=== PATIENT | male | born 1960 | race African-American/Black ===

== ENCOUNTER 2018-02-08 17:50 | Inpatient (IN) | payer MEDICARE, OTHER ==
[~2018-02-08] VITALS: Ht 167.6 cm; Wt 86.6 kg
[~2018-02-08 17:50] MED LIST: METO25TA4 PO; PRED20TA PO; TACR1CAP4 PO; VERA240C2 PO
[2018-02-08] MEDS ORDERED: IV NORMAL SALINE 1000ML BAG 1,000 ML IV SCH (19:06)
[2018-02-08] MEDS ORDERED: METO-247 PO (19:11)
[2018-02-08] MEDS ORDERED: OMEP20CA9 PO (19:11)
[2018-02-08] MEDS ORDERED: CYAN50TA PO (19:11)
[2018-02-08] MEDS ORDERED: MYCO360T PO (19:11)
[2018-02-08] MEDS ORDERED: VERA120C2 PO (19:11)
[2018-02-08] MEDS ORDERED: PRED5TAB PO (19:11)
--- NOTE | 2018-02-08 19:12 | PHYS DOC ---
Past Medical History Past Medical History: A-Fib, Hypertension, Renal Failure, Other Additional Past Medical Histor: lupus; renal transplant Past Surgical History: Other Additional Past Surgical Histo: R renal transplant Smoking: Cigarettes (The patient is a nonsmoker.) Alcohol Use: None Drug Use: None Adult General Chief Complaint Chief Complaint: DIZZY/LIGHT HEADED HPI HPI Patient is a 57-year-old -[place]ian male, with a past history of hypertension, lupus, renal failure, status post remote renal transplant, who presents to the emergency department for evaluation. He states at work today, he began getting lightheaded at times, and was very short of breath with exertion. He states he would have occasional palpitations. He states he has had episodes of palpitation in the past, but they never lasted as long as it did today. He denies any pain, including any chest pain, or pleuritic pain. He has not had any nausea, or vomiting. He called his doctor's office, and was sent to urgent care, where an EKG was performed and he was found to be in atrial fibrillation, which is new for him, and he was thus sent to the emergency department. He still feels short of breath with exertion. There are no alleviating, or exacerbating factors to his symptoms, except exertion worsening his symptoms, as noted above. Review of Systems Review of Systems Constitutional: Denies fever or chills [] Eyes: Denies change in visual acuity, redness, or eye pain [] HENT: Denies nasal congestion or sore throat [] Respiratory: Denies cough or pleuritic chest pain[] Cardiovascular: No additional information not addressed in HPI [] GI: Denies abdominal pain, nausea, vomiting, bloody stools or diarrhea [] : Denies dysuria or hematuria [] Musculoskeletal: Denies back pain or joint pain [] Integument: Denies rash or skin lesions [] Neurologic: Denies headache, focal weakness or sensory changes [] Endocrine: Denies polyuria or polydipsia [] All other systems were reviewed and found to be within normal limits, except as documented in this note. Current Medications Current Medications Current Medications Medications (Trade) Dose Ordered Sig/Jorge L Start Time Stop Time Status Last Admin Dose Admin Apixaban (Eliquis) 5 mg 1X ONCE 02/08/18 20:00 02/08/18 20:01 02/08/18 19:34 5 MG Sodium Chloride 1,000 ml @ 100 mls/hr Q10H 02/08/18 19:06 02/09/18 05:05 02/08/18 19:13 100 MLS/HR Allergies Allergies Allergies Coded Allergies Type Severity Reaction Last Updated Verified Sulfa (Sulfonamide Antibiotics) Allergy Unknown 03/28/14 No Tetracycline Allergy Unknown 03/28/14 No Physical Exam Physical Exam PHYSICAL EXAM: CONSTITUTIONAL: Well developed, well nourished HEAD: normocephalic, atraumatic EENT: PERRL, EOMI. Conjunctivae normal color, sclerae non-icteric; moist mucous membranes. NECK: Supple, non-tender; no meningismus. LUNGS: Lungs CTA, breathing even and unlabored. Normal air movement. HEART: Irregularly irregular rhythm, no murmur CHEST: No deformity; non-tender ABDOMEN: The abdomen is soft, and non-tender, no masses or bruits. EXTREM: Normal ROM; no deformity, no calf tenderness. Normal pulses palpable in all extremities. There is no pedal edema. SKIN: No rash; no diaphoresis NEURO: Alert; normal speech and cognition; CN's grossly intact; strength grossly intact without focal deficit. BACK: No CVA TTP. Current Patient Data Vital Signs Vital Signs Date Time Temp Pulse Resp B/P (MAP) Pulse Ox O2 Delivery O2 Flow Rate FiO2 02/08/18 18:45 99.0 75 16 120/85 (97) Room Air 99.0 Lab Values Laboratory Tests Test 02/08/18 19:00 White Blood Count 9.3 x10^3/uL (4.0-11.0) Red Blood Count 4.48 x10^6/uL (4.30-5.70) Hemoglobin 13.5 g/dL (13.0-17.5) Hematocrit 42.1 % (39.0-53.0) Mean Corpuscular Volume 94 fL (79-100) Mean Corpuscular Hemoglobin 30 pg (25-35) Mean Corpuscular Hemoglobin Concent 32 g/dL (31-37) Red Cell Distribution Width 14.3 % (11.5-14.5) Platelet Count 276 x10^3/uL (140-400) Neutrophils (%) (Auto) 68 % (31-73) Lymphocytes (%) (Auto) 23 % (24-48) L Monocytes (%) (Auto) 9 % (0-9) Eosinophils (%) (Auto) 1 % (0-3) Basophils (%) (Auto) 0 % (0-3) Neutrophils # (Auto) 6.3 x10^3uL (1.8-7.7) Lymphocytes # (Auto) 2.1 x10^3/uL (1.0-4.8) Monocytes # (Auto) 0.8 x10^3/uL (0.0-1.1) Eosinophils # (Auto) 0.1 x10^3/uL (0.0-0.7) Basophils # (Auto) 0.0 x10^3/uL (0.0-0.2) Prothrombin Time 12.6 SEC (11.7-14.0) Prothrombin Time INR 1.0 (0.8-1.1) D-Dimer (Natalie) 1.99 ug/mlFEU (0.00-0.50) H Sodium Level 139 mmol/L (136-145) Potassium Level 3.5 mmol/L (3.5-5.1) Chloride Level 105 mmol/L (98-107) Carbon Dioxide Level 28 mmol/L (21-32) Anion Gap 6 (6-14) Blood Urea Nitrogen 16 mg/dL (8-26) Creatinine 1.8 mg/dL (0.7-1.3) H Estimated GFR (Cockcroft-Gault) 47.5 BUN/Creatinine Ratio 9 (6-20) Glucose Level 107 mg/dL (70-99) H Calcium Level 8.8 mg/dL (8.5-10.1) Magnesium Level 1.6 mg/dL (1.8-2.4) L Total Bilirubin 0.5 mg/dL (0.2-1.0) Aspartate Amino Transferase (AST) 18 U/L (15-37) Alanine Aminotransferase (ALT) 21 U/L (16-63) Alkaline Phosphatase 85 U/L (46-116) Creatine Kinase 108 U/L (39-308) Creatine Kinase MB (Mass) 0.8 ng/mL (0.0-3.6) Creatine Kinase MB Relative Index 0.7 % (0-4) Troponin I Quantitative 0.027 ng/mL (0.000-0.055) AX-Bng-U-Type Natriuretic Peptide 1255 pg/mL (0-124) H Total Protein 8.1 g/dL (6.4-8.2) Albumin 3.6 g/dL (3.4-5.0) Albumin/Globulin Ratio 0.8 (1.0-1.7) L Thyroid Stimulating Hormone (TSH) 1.548 uIU/mL (0.358-3.74) Free Thyroxine 0.88 ng/dL (0.76-1.46) Laboratory Tests 02/08/18 19:00 Laboratory Tests 02/08/18 19:00 EKG EKG [Atrial fibrillation at a rate of 78 beats for minute, left axis deviation, normal intervals. There are no acute ischemic ST/T changes.] Radiology/Procedures Radiology/Procedures [ER physician preliminary chest x-ray interpretation: No acute disease.] Course & Med Decision Making Course & Med Decision Making Pertinent Labs and Imaging studies reviewed. (See chart for details) [7:55 PM:The patient's condition remains stable. I spoke with the hospitalist , who accepted the patient to the hospital for further evaluation and treatment. ] VQ scan will be ordered, and will be followed up by the hospitalist. Dragon Disclaimer Dragon Disclaimer This electronic medical record was generated, in whole or in part, using a voice recognition dictation system. Departure Departure Impression: Primary Impression: Dyspnea on exertion Additional Impression: New onset atrial fibrillation Disposition: ADMITTED INPATIENT Admitting Physician: Michael Lambert Condition: STABLE Referrals: JENNIFER KATZ Jr, MD (PCP) Problem Qualifiers DIETER JOHANSEN MD Feb 08, 2018 19:12
[2018-02-08 19:17] LABS: BASO % 0 % (0-3); EOS # 0.1 x10^3/uL (0.0-0.7); EOS % 1 % (0-3); HEMATOCRIT 42.1 % (39.0-53.0); HEMOGLOBIN 13.5 g/dL (13.0-17.5); LYMPH # 2.1 x10^3/uL (1.0-4.8); LYMPH % 23 % (24-48); MEAN CORPUSCULAR HEMOGLOBIN 30 pg (25-35); MEAN CORPUSCULAR HGB CONC 32 g/dL (31-37); MEAN CORPUSCULAR VOLUME 94 fL (79-100); MONO # 0.8 x10^3/uL (0.0-1.1); MONO % 9 % (0-9); NEUT # 6.3 x10^3uL (1.8-7.7); NEUT % 68 % (31-73); PLATELET COUNT 276 x10^3/uL (140-400); RED BLOOD COUNT 4.48 x10^6/uL (4.30-5.70); RED CELL DISTRIBUTION WIDTH 14.3 % (11.5-14.5); WHITE BLOOD COUNT 9.3 x10^3/uL (4.0-11.0)
[2018-02-08 19:24] LABS: PROTHROMBIN TIME PATIENT 12.6 SEC (11.7-14.0)
[2018-02-08 19:28] LABS: D-DIMER 1.99 ug/mlFEU (0.00-0.50)
[2018-02-08 19:29] LABS: CALCIUM 8.8 mg/dL (8.5-10.1); CREATININE 1.8 mg/dL (0.7-1.3); GFR 47.5; POTASSIUM 3.5 mmol/L (3.5-5.1)
[2018-02-08 19:34] LABS: ALBUMIN 3.6 g/dL (3.4-5.0); ALBUMIN/GLOBULIN RATIO 0.8 (1.0-1.7); MAGNESIUM 1.6 mg/dL (1.8-2.4); TOTAL BILIRUBIN 0.5 mg/dL (0.2-1.0); TOTAL PROTEIN 8.1 g/dL (6.4-8.2)
[2018-02-08 19:41] LABS: FREE T4 0.88 ng/dL (0.76-1.46); THYROID STIM HORMONE (TSH) 1.548 uIU/mL (0.358-3.74)
[2018-02-08] MEDS ORDERED: APIXABAN 5 MG TABLET. PO ONE (20:00)
[2018-02-08 21:15] VITALS: BP 136/94
[2018-02-08] MEDS ORDERED: TACR1CAP4 PO (21:45)
[2018-02-08] MEDS ORDERED: VERAPAMIL SR 120 MG TABLET.ER. PO SCH (22:00)
[2018-02-08] MEDS: MYCOPHENOLATE ACID 180 MG TABLET.DR. PO SCH (22:14)
[2018-02-08] MEDS ORDERED: TACROLIMUS 0.5 MG CAPSULE PO SCH (22:30)
[2018-02-08 22:35] VITALS: BP 136/94
[2018-02-09 03:00] VITALS: BP 117/73
--- NOTE | 2018-02-09 05:24 | EKG ---
[facility] [address] [place] [address] Test Date: 2018-02-08 Test Time: 18:48:29 Pat Name: BARBARA DAS Department: Room: 252 1 Gender: M Siphoner: MAR : 1960 Requested By: DIETER JOHANSEN Order Number: [id number] Reading MD: Chilo Nunn MD Measurements Intervals [place] Rate: 77 P: RI: QRS: -25 QRSD: 76 T: 24 QT: 370 QTc: 425 Interpretive Statements ATRIAL FIBRILLATION NON-SPECIFIC ST/T CHANGES Electronically Signed On 02-10-2018 8:45:28 CDT by Chilo Nunn MD
[2018-02-09] MEDS ORDERED: HEPARIN PF for SUB-Q USE 5,000 UNIT/0.5 ML VIAL. SQ SCH (06:00)
[2018-02-09 07:00] VITALS: BP 123/76
[2018-02-09] MEDS ORDERED: POTASSIUM CHLORIDE 20 MEQ TABLET.ER. PO ONE (07:15)
--- NOTE | 2018-02-09 07:20 | PDOC1 ---
History and Physical Date of Admission Date of Admission DATE: 02/09/18 TIME: 07:17 Identification/Chief Complaint Chief Complaint dizzy, dyspnea Source Source: Chart review, Patient History of Present Illness History of Present Illness Mr. Kulkarni is a 57-year-old -[place] male, admit with dyspnea, tachycardia, dizzy and lightheaded. sent to the ER by urgent care, EKG there showed irregularity, afib, RVR. new onset, he had been out of his Toprol XL for 5 days, had been compliant with he prograf , new dyspnea and weakness yesterday, feels better this AM, now rate controlled. with a past history of hypertension, lupus, renal failure, status post remote renal transplant, he drives a concrete truck for [employer] Past Medical History Cardiovascular: HTN Pulmonary: No pertinent hx GI: No pertinent hx Heme/Onc: No pertinent hx Hepatobiliary: No pertinent hx Psych: No pertinent hx Renal/: Chronic renal insuff, Other Endocrine: No pertinent hx Family History Family History: No Significant Social History Smoke: Quit ALCOHOL: none Drugs: None Current Problem List Problem List Problems Medical Problems: (1) Dyspnea on exertion Status: Acute (2) New onset atrial fibrillation Status: Acute Current Medications Current Medications Current Medications Sodium Chloride 1,000 ml @ 100 mls/hr Q10H IV Last administered on 02/08/18at 19 :13; Start 02/08/18 at 19:06; Stop 02/09/18 at 05:05; Status DC Apixaban (Eliquis) 5 mg 1X ONCE PO Last administered on 02/08/18at 19:34; Start 02/08/18 at 20:00; Stop 02/08/18 at 20:01; Status DC Mycophenolate Sodium (Myfortic) 360 mg BID PO ; Start 02/09/18 at 09:00; Stop 02/09/18 at 09:00; Status DC Pantoprazole Sodium (Protonix) 40 mg DAILYAC PO ; Start 02/09/18 at 07:30 Tacrolimus (Prograf) 2 mg DAILY PO ; Start 02/09/18 at 09:00; Stop 02/09/18 at 09: 00; Status DC Tacrolimus (Prograf) 3 mg QHS PO ; Start 02/09/18 at 21:00; Stop 02/09/18 at 21:00 ; Status DC Verapamil HCl (Calan Sr) 120 mg QHS PO Last administered on 02/08/18at 22:15; Start 02/08/18 at 22:00 Mycophenolate Sodium (Myfortic) 360 mg BID PO Last administered on 02/08/18at 22: 14; Start 02/08/18 at 22:00 Tacrolimus (Prograf) 2 mg DAILY PO ; Start 02/09/18 at 09:00 Tacrolimus (Prograf) 3 mg QHS PO Last administered on 02/08/18at 22:15; Start 02/08/18 at 22:30 Heparin Sodium (Porcine) (Heparin Sq) 5,000 unit Q8HRS SQ Last administered on 02/09/18at 06:19; Start 02/09/18 at 06:00; Stop 02/09/18 at 07:09; Status DC Potassium Chloride (Klor-Con) 40 meq 1X ONCE PO ; Start 02/09/18 at 07:15; Stop 02/09/18 at 07:16; Status DC Apixaban (Eliquis) 5 mg BID PO ; Start 02/09/18 at 09:00 Metoprolol Succinate (Toprol Xl) 100 mg DAILY PO ; Start 02/09/18 at 09:00 Prednisone (Prednisone) 5 mg DAILY PO ; Start 02/09/18 at 09:00 Active Scripts Active Reported Prograf (Tacrolimus) 1 Mg Capsule 3 Cap PO HS Vitamin B-12 (Cyanocobalamin (Vitamin B-12)) 50 Mcg Tablet 50 Mcg PO Omeprazole 20 Mg Capsule.dr 20 Mg PO DAILY Prednisone 5 Mg Tablet 5 Mg PO DAILY Metoprolol Succinate ( Xl ) (Metoprolol Succinate) 100 Mg Tab.er.24h 100 Mg PO DAILY Verapamil Er (Verapamil Hcl) 120 Mg Cap24h.pel 120 Mg PO HS Myfortic (Mycophenolate Sodium) 360 Mg Tablet.dr 360 Mg PO BID Prograf (Tacrolimus) 1 Mg Capsule 2 Cap PO DAILY Allergies Allergies: Coded Allergies: Sulfa (Sulfonamide Antibiotics) (Unverified Allergy, Intermediate, 02/08/18) tetracycline (Unverified Allergy, Intermediate, 02/08/18) ROS General: YES: Chills, Fatigue, Malaise; No: Night Sweats, Appetite, Other PSYCHOLOGICAL ROS: No: Anxiety, Behavioral Disorder, Concentration difficultie , Decreased libido, Depression, Disorientation, Hallucinations, Hostility, Irritablity, Memory difficulties, Mood Swings, Obsessive thoughts, Physical abuse, Sexual abuse, Sleep disturbances, Suicidal ideation, Other HEENT: No: Heacaches, Visual Changes, Hearing change, Nasal congestion, Nasal discharge, Oral lesions, Sinus pain, Sore Throat, Epistaxis, Sneezing, Snoring, Tinnitus, Vertigo, Vocal changes, Other Respiratory: No: Cough, Hemoptysis, Orthopnea, Pleuritic Pain, Shortness of breath, SOB with excertion, Sputum Changes, Stridor, Tachypnea, Wheezing, Other Cardiovascular: No Chest Pain, No Palpitations, No Orthopnea, No Paroxysmal Noc. Dyspnea, No Edema, No Lt Headedness, No Other Gastrointestinal: No Nausea, No Vomiting, No Abdominal Pain, No Diarrhea, No Constipation, No Melena, No Hematochezia, No Other Genitourinary: No Dysuria, No Frequency, No Incontinence, No Hematuria, No Retention, No Discharge, No Urgency, No Pain, No Flank Pain, No Other, No , No , No , No , No , No , No Musculoskeletal: Yes Joint Stiffness; No Gait Disturbance, No Joint Pain, No Joint Swelling, No Muscle Pain, No Muscular Weakness, No Pain In:, No Swelling In:, No Other Neurological: No Behavorial Changes, No Bowel/Bladder ControlChng, No Confusion , No Dizziness, No Gait Disturbance, No Headaches, No Impaired Coord/balance, No Memory Loss, No Numbness/Tingling, No Seizures, No Speech Problems, No Tremors, No Visual Changes, No Weakness, No Other Skin: No Dry Skin, No Eczema, No Hair Changes, No Lumps, No Mole Changes, No Mottling, No Nail Changes, No Pruritus, No Rash, No Skin Lesion Changes, No Other, No Acne Physical Exam General: Alert, Cooperative, No acute distress HEENT: Atraumatic, PERRLA, EOMI, Mucous membr. moist/pink Lungs: Normal air movement, Other (wheeze, right, end exp) Heart: S1S2, no gallops, no murmurs Abdomen: Normal bowel sounds, Soft Extremities: No cyanosis, Normal pulses Skin: No rashes, No significant lesion Neuro: Normal speech, Normal tone, Sensation intact Psych/Mental Status: Mental status NL, Mood NL Vitals Vitals Vital Signs Date Time Temp Pulse Resp B/P (MAP) Pulse Ox O2 Delivery O2 Flow Rate FiO2 02/09/18 03:00 98.8 69 16 117/73 (88) 99 Room Air 98.8 Labs Labs Laboratory Tests Test 02/08/18 19:00 02/09/18 01:25 White Blood Count 9.3 x10^3/uL (4.0-11.0) Red Blood Count 4.48 x10^6/uL (4.30-5.70) Hemoglobin 13.5 g/dL (13.0-17.5) Hematocrit 42.1 % (39.0-53.0) Mean Corpuscular Volume 94 fL (79-100) Mean Corpuscular Hemoglobin 30 pg (25-35) Mean Corpuscular Hemoglobin Concent 32 g/dL (31-37) Red Cell Distribution Width 14.3 % (11.5-14.5) Platelet Count 276 x10^3/uL (140-400) Neutrophils (%) (Auto) 68 % (31-73) Lymphocytes (%) (Auto) 23 % (24-48) Monocytes (%) (Auto) 9 % (0-9) Eosinophils (%) (Auto) 1 % (0-3) Basophils (%) (Auto) 0 % (0-3) Neutrophils # (Auto) 6.3 x10^3uL (1.8-7.7) Lymphocytes # (Auto) 2.1 x10^3/uL (1.0-4.8) Monocytes # (Auto) 0.8 x10^3/uL (0.0-1.1) Eosinophils # (Auto) 0.1 x10^3/uL (0.0-0.7) Basophils # (Auto) 0.0 x10^3/uL (0.0-0.2) Prothrombin Time 12.6 SEC (11.7-14.0) Prothromb Time International Ratio 1.0 (0.8-1.1) D-Dimer (Natalie) 1.99 ug/mlFEU (0.00-0.50) Sodium Level 139 mmol/L (136-145) Potassium Level 3.5 mmol/L (3.5-5.1) Chloride Level 105 mmol/L (98-107) Carbon Dioxide Level 28 mmol/L (21-32) Anion Gap 6 (6-14) Blood Urea Nitrogen 16 mg/dL (8-26) Creatinine 1.8 mg/dL (0.7-1.3) Estimated GFR (Cockcroft-Gault) 47.5 BUN/Creatinine Ratio 9 (6-20) Glucose Level 107 mg/dL (70-99) Calcium Level 8.8 mg/dL (8.5-10.1) Magnesium Level 1.6 mg/dL (1.8-2.4) Total Bilirubin 0.5 mg/dL (0.2-1.0) Aspartate Amino Transf (AST/SGOT) 18 U/L (15-37) Alanine Aminotransferase (ALT/SGPT) 21 U/L (16-63) Alkaline Phosphatase 85 U/L (46-116) Creatine Kinase 108 U/L (39-308) Creatine Kinase MB (Mass) 0.8 ng/mL (0.0-3.6) Creatine Kinase MB Relative Index 0.7 % (0-4) Troponin I Quantitative 0.027 ng/mL (0.000-0.055) 0.026 ng/mL (0.000-0.055) HH-Bbs-R-Type Natriuretic Peptide 1255 pg/mL (0-124) Total Protein 8.1 g/dL (6.4-8.2) Albumin 3.6 g/dL (3.4-5.0) Albumin/Globulin Ratio 0.8 (1.0-1.7) Thyroid Stimulating Hormone (TSH) 1.548 uIU/mL (0.358-3.74) Free Thyroxine 0.88 ng/dL (0.76-1.46) Laboratory Tests Test 02/08/18 19:00 02/09/18 01:25 White Blood Count 9.3 x10^3/uL (4.0-11.0) Red Blood Count 4.48 x10^6/uL (4.30-5.70) Hemoglobin 13.5 g/dL (13.0-17.5) Hematocrit 42.1 % (39.0-53.0) Mean Corpuscular Volume 94 fL (79-100) Mean Corpuscular Hemoglobin 30 pg (25-35) Mean Corpuscular Hemoglobin Concent 32 g/dL (31-37) Red Cell Distribution Width 14.3 % (11.5-14.5) Platelet Count 276 x10^3/uL (140-400) Neutrophils (%) (Auto) 68 % (31-73) Lymphocytes (%) (Auto) 23 % (24-48) Monocytes (%) (Auto) 9 % (0-9) Eosinophils (%) (Auto) 1 % (0-3) Basophils (%) (Auto) 0 % (0-3) Neutrophils # (Auto) 6.3 x10^3uL (1.8-7.7) Lymphocytes # (Auto) 2.1 x10^3/uL (1.0-4.8) Monocytes # (Auto) 0.8 x10^3/uL (0.0-1.1) Eosinophils # (Auto) 0.1 x10^3/uL (0.0-0.7) Basophils # (Auto) 0.0 x10^3/uL (0.0-0.2) Prothrombin Time 12.6 SEC (11.7-14.0) Prothromb Time International Ratio 1.0 (0.8-1.1) D-Dimer (Natalie) 1.99 ug/mlFEU (0.00-0.50) Sodium Level 139 mmol/L (136-145) Potassium Level 3.5 mmol/L (3.5-5.1) Chloride Level 105 mmol/L (98-107) Carbon Dioxide Level 28 mmol/L (21-32) Anion Gap 6 (6-14) Blood Urea Nitrogen 16 mg/dL (8-26) Creatinine 1.8 mg/dL (0.7-1.3) Estimated GFR (Cockcroft-Gault) 47.5 BUN/Creatinine Ratio 9 (6-20) Glucose Level 107 mg/dL (70-99) Calcium Level 8.8 mg/dL (8.5-10.1) Magnesium Level 1.6 mg/dL (1.8-2.4) Total Bilirubin 0.5 mg/dL (0.2-1.0) Aspartate Amino Transf (AST/SGOT) 18 U/L (15-37) Alanine Aminotransferase (ALT/SGPT) 21 U/L (16-63) Alkaline Phosphatase 85 U/L (46-116) Creatine Kinase 108 U/L (39-308) Creatine Kinase MB (Mass) 0.8 ng/mL (0.0-3.6) Creatine Kinase MB Relative Index 0.7 % (0-4) Troponin I Quantitative 0.027 ng/mL (0.000-0.055) 0.026 ng/mL (0.000-0.055) BU-Ucb-E-Type Natriuretic Peptide 1255 pg/mL (0-124) Total Protein 8.1 g/dL (6.4-8.2) Albumin 3.6 g/dL (3.4-5.0) Albumin/Globulin Ratio 0.8 (1.0-1.7) Thyroid Stimulating Hormone (TSH) 1.548 uIU/mL (0.358-3.74) Free Thyroxine 0.88 ng/dL (0.76-1.46) VTE Prophylaxis Ordered VTE Prophylaxis Devices: No VTE Pharmacological Prophylaxi: Yes Assessment/Plan Assessment/Plan acute diastolic CHF new AFIB, RVR chronic hypertension BMI 30 acute vasomotor on CKD2 with prior renal transplant, consult renal , IV fluid gievn, will check UA cont prograf immune suppressedpt CHAUNCEY ALMODOVAR MD Feb 09, 2018 07:20
[2018-02-09] MEDS ORDERED: PANTOPRAZOLE 40 MG TABLET.DR. PO SCH (07:30)
[2018-02-09] MEDS ORDERED: ANTI-COAG MONITOR BY PHARMACY. MC PRN (08:00)
[2018-02-09] MEDS ORDERED: BUDESONIDE 0.5 MG/2 ML NEBU. NEB SCH (08:00)
--- NOTE | 2018-02-09 08:34 | RAD ---
Ventilation perfusion exam History: Elevated d-dimer, dyspnea, tachycardia, dizziness and lightheadedness for one day Comparison: February 08, 2018 chest radiograph, no previous similar exam available Findings: Ventilation perfusion examination was performed. Ventilation images were acquired after the patient inhaled 15.4 mCi of xenon-133 gas. Perfusion images were acquired after the patient was injected with 6 mCi of technetium 99m MAA. No mismatched perfusion defect is identified. Impression: 1. There is low probability for pulmonary embolic disease. Electronically signed by: Federico Gaitan MD (02/09/2018 8:31 AM) [id number]
--- NOTE | 2018-02-09 08:42 | RAD ---
PORTABLE CHEST 1V History: short of breath Comparison: March 28, 2014 Findings: Single view of the chest is submitted. There is no infiltrate, pneumothorax, or effusion. The pericardial cardiac silhouette is within normal limits in size. Impression: 1. There is no evidence of acute cardiopulmonary disease. Electronically signed by: Federico Gaitan MD (02/09/2018 8:38 AM) [id number]
[2018-02-09] MEDS: IPRATRPIUM/ALBUTEROL 0.5/2.5MG 3 ML NEBU. NEB SCH ×2 (08:51→13:44)
[2018-02-09] MEDS ORDERED: predniSONE 5 MG TABLET PO SCH (09:00)
[2018-02-09] MEDS ORDERED: TACROLIMUS 0.5 MG CAPSULE PO SCH ×3 (09:00→21:00)
[2018-02-09] MEDS ORDERED: APIXABAN 5 MG TABLET. PO SCH (09:00)
[2018-02-09] MEDS ORDERED: METOPROLOL SUCC 24HR ER 100 MG TAB.ER.24H. PO SCH (09:00)
[2018-02-09] MEDS ORDERED: MYCOPHENOLATE ACID 180 MG TABLET.DR. PO SCH (09:00)
[2018-02-09 10:18] LABS: CALCIUM 8.3 mg/dL (8.5-10.1); CREATININE 1.9 mg/dL (0.7-1.3); GFR 44.6; MAGNESIUM 1.5 mg/dL (1.8-2.4); POTASSIUM 3.3 mmol/L (3.5-5.1)
--- NOTE | 2018-02-09 10:30 | PDOC2 ---
NIKKIE PARKER CONSULTANT TECHNOLOGY 02/09/18 1030: CARDIAC CONSULT DATE OF CONSULT Date of Consult DATE: 02/09/18 TIME: 09:45 REASON FOR CONSULT Reason for Consult: AFIB, SOA REFERRING PHYSICIAN Referring Physician: Shani SOURCE Source: Chart review, Patient HISTORY OF PRESENT ILLNESS HISTORY OF PRESENT ILLNESS This is a pleasant 57 yo male admitted for complains of SOA and dizziness. denies any chest pain. Reports that he ran out of verapamil and metoprolol for his HTN last . Wednesday and Wednesday he was feeling a little nauseated with some dizziness. Yesterday he felt SOA, with palpitations and dizziness. Prior to this episode there was no BERGMAN. He never had any chest pain. He actually had stress test about 2 yrs ago which was ok accdg to him. Denies any vomiting, diarrhea or any recent fever or chills but he is being treated with antibiotics because he does have upper tooth abscess and due for a root canal soon. No prior hx of arrhythmia, CAD, VTE, CVA, clotting disorders nor bleeding disorders. Denies any recent MVA, falls or any injury. After going to his PCP to which he was told to go to urgent care if he continues to feel the latter and he did and was noted with AFIB which is new for him. PAST MEDICAL HISTORY Cardiovascular: HTN Pulmonary: No pertinent hx Heme/Onc: Other (chronic immunosuppresion) Psych: Depression Renal/: Chronic renal failure (lupus nehritis) Dermatology: No pertinent hx PAST SURGICAL HISTORY Past Surgical History: Other (11/2005 renal transplant) FAMILY HISTORY Family History: Heart Disease (mother) SOCIAL HISTORY Smoke: Quit (11 yrs ago 20 pk yr) ALCOHOL: none Drugs: None Lives: with Family CURRENT MEDICATIONS CURRENT MEDICATIONS Current Medications Medications (Trade) Dose Ordered Sig/Jorge L Route PRN Reason Start Time Stop Time Status Last Admin Dose Admin Sodium Chloride 1,000 ml @ 100 mls/hr Q10H IV 02/08/18 19:06 02/09/18 05:05 DC 02/08/18 19:13 Apixaban (Eliquis) 5 mg 1X ONCE PO 02/08/18 20:00 02/08/18 20:01 DC 02/08/18 19:34 Verapamil HCl (Calan Sr) 120 mg QHS PO 02/08/18 22:00 02/08/18 22:15 Mycophenolate Sodium (Myfortic) 360 mg BID PO 02/08/18 22:00 02/08/18 22:14 Tacrolimus (Prograf) 3 mg QHS PO 02/08/18 22:30 02/08/18 22:15 Heparin Sodium (Porcine) (Heparin Sq) 5,000 unit Q8HRS SQ 02/09/18 06:00 02/09/18 07:09 DC 02/09/18 06:19 Budesonide (Pulmicort) 0.5 mg RTBID NEB 02/09/18 08:00 02/09/18 08:51 Albuterol/ Ipratropium (Duoneb) 3 ml RTQID NEB 02/09/18 08:00 02/09/18 08:51 ALLERGIES ALLERGIES: Coded Allergies: Sulfa (Sulfonamide Antibiotics) (Unverified Allergy, Intermediate, 02/08/18) tetracycline (Unverified Allergy, Intermediate, 02/08/18) ROS Review of System 14 point ROS evaluated with pertinent positives noted per HPI PHYSICAL EXAM General: Alert, Oriented X3, Cooperative, No acute distress HEENT: Atraumatic, Mucous membr. moist/pink Lungs: Clear to auscultation, Normal air movement Heart: Regular rate (SR), Normal S1, Normal S2, Other (2/6 systolic murmur to LLS border) Abdomen: Soft, No tenderness Extremities: No cyanosis, No edema Skin: No breakdown, No significant lesion Neuro: Normal speech, Sensation intact Psych/Mental Status: Mental status NL, Mood NL MUSCULOSKELETAL: Osteoarthritic changes both hands VITALS VITALS Vital Signs Date Time Temp Pulse Resp B/P (MAP) Pulse Ox O2 Delivery O2 Flow Rate FiO2 02/09/18 08:56 98 Room Air 02/09/18 07:00 97.8 76 18 123/76 (92) 97.8 LABS Lab: Laboratory Tests Test 02/08/18 19:00 02/09/18 01:25 White Blood Count 9.3 x10^3/uL (4.0-11.0) Red Blood Count 4.48 x10^6/uL (4.30-5.70) Hemoglobin 13.5 g/dL (13.0-17.5) Hematocrit 42.1 % (39.0-53.0) Mean Corpuscular Volume 94 fL (79-100) Mean Corpuscular Hemoglobin 30 pg (25-35) Mean Corpuscular Hemoglobin Concent 32 g/dL (31-37) Red Cell Distribution Width 14.3 % (11.5-14.5) Platelet Count 276 x10^3/uL (140-400) Neutrophils (%) (Auto) 68 % (31-73) Lymphocytes (%) (Auto) 23 % (24-48) Monocytes (%) (Auto) 9 % (0-9) Eosinophils (%) (Auto) 1 % (0-3) Basophils (%) (Auto) 0 % (0-3) Neutrophils # (Auto) 6.3 x10^3uL (1.8-7.7) Lymphocytes # (Auto) 2.1 x10^3/uL (1.0-4.8) Monocytes # (Auto) 0.8 x10^3/uL (0.0-1.1) Eosinophils # (Auto) 0.1 x10^3/uL (0.0-0.7) Basophils # (Auto) 0.0 x10^3/uL (0.0-0.2) Prothrombin Time 12.6 SEC (11.7-14.0) Prothromb Time International Ratio 1.0 (0.8-1.1) D-Dimer (Natalie) 1.99 ug/mlFEU (0.00-0.50) Sodium Level 139 mmol/L (136-145) Potassium Level 3.5 mmol/L (3.5-5.1) Chloride Level 105 mmol/L (98-107) Carbon Dioxide Level 28 mmol/L (21-32) Anion Gap 6 (6-14) Blood Urea Nitrogen 16 mg/dL (8-26) Creatinine 1.8 mg/dL (0.7-1.3) Estimated GFR (Cockcroft-Gault) 47.5 BUN/Creatinine Ratio 9 (6-20) Glucose Level 107 mg/dL (70-99) Calcium Level 8.8 mg/dL (8.5-10.1) Magnesium Level 1.6 mg/dL (1.8-2.4) Total Bilirubin 0.5 mg/dL (0.2-1.0) Aspartate Amino Transf (AST/SGOT) 18 U/L (15-37) Alanine Aminotransferase (ALT/SGPT) 21 U/L (16-63) Alkaline Phosphatase 85 U/L (46-116) Creatine Kinase 108 U/L (39-308) Creatine Kinase MB (Mass) 0.8 ng/mL (0.0-3.6) Creatine Kinase MB Relative Index 0.7 % (0-4) Troponin I Quantitative 0.027 ng/mL (0.000-0.055) 0.026 ng/mL (0.000-0.055) HA-Kqw-D-Type Natriuretic Peptide 1255 pg/mL (0-124) Total Protein 8.1 g/dL (6.4-8.2) Albumin 3.6 g/dL (3.4-5.0) Albumin/Globulin Ratio 0.8 (1.0-1.7) Thyroid Stimulating Hormone (TSH) 1.548 uIU/mL (0.358-3.74) Free Thyroxine 0.88 ng/dL (0.76-1.46) ASSESSMENT/PLAN ASSESSMENT/PLAN 1. New onset AFIB with RVR: in the setting of dehydration and low Mg/K. Converted to SR overnight after verapamil given. 2. Presyncope and dyspnea: suspect from AFIB 3. Hx of lupus nephritis with S/P renal transplant in 2005 4. Chronic immunosuppression 5. HTN: takes metoprolol and verapamil at home ran out last week. 6. Tooth abscess: due for root canal. Recommendations 1. Trop nml, EKG revealed no changes to QRS morphology by comparison. V/Q scan low probability for PE. Await TTE. 2. Discussed compliance and not to ran out of meds. Resume home verapamil and Metoprolol pending BP trend. Encouraged hydration adequacy 3. Repeat BMP and Mg and will replace as warranted. Check lipids as well 4. Oupt event monitor and note AFIB burden. Outpt stress test is a consideration. 5. [id number] 1. Discussed ASA vs anticoagulation. Discussed risks and benefits and would like to proceed with ASA for stroke prevention. ARTI DENT MD 02/10/18 0736: CARDIAC CONSULT ASSESSMENT/PLAN ASSESSMENT/PLAN Patient seen and examined 02/09/18. Agree with SUBSTATION TECHNICIAN's assessment and plan. New-onset atrial fibrillation, presently back in sinus rhythm 2-D echo showed normal LV systolic function Agree with Lexiscan nuclear stress test and event monitor as an outpatient Continue aspirin for stroke prophylaxis Okay for discharge from cardiac standpoint Thank you for your consultation NIKKIE PARKER APRN Feb 09, 2018 10:30 ARTI DENT MD Feb 10, 2018 07:36
[2018-02-09] MEDS: MYCOPHENOLATE ACID 180 MG TABLET.DR. PO SCH (10:37)
[2018-02-09 10:39] LABS: CHOLESTEROL/HDL RATIO 3.6
[2018-02-09 10:45] VITALS: BP 117/75
[2018-02-09] MEDS ORDERED: ASPIRIN ENTERIC COATED 81 MG TABLET.DR. PO SCH (11:00)
[2018-02-09] MEDS ORDERED: ASPI325T8 PO (12:14)
--- NOTE | 2018-02-09 13:17 | CARD ---
MR#: [id number] Date of Study: 02/09/2018 Ordering Physician: CHAUNCEY ALMODOVAR, Referring Physician: BOLA LAZARO Tech: TRINH Sepulveda APPROVED REPORT EXAM: Two-dimensional and M-mode echocardiogram with Doppler and color Doppler. Other Information Quality : AverageHR: 63bpm INDICATION Atrial Fibrillation 2D DIMENSIONS Left Atrium(2D)2.7 (1.6-4.0cm)IVSd1.4 (0.7-1.1cm) Aortic Root(2D)3.6 (2.0-3.7cm)LVDd4.6 (3.9-5.9cm) LVOT Diameter2.5 (1.8-2.4cm)PWd1.5 (0.7-1.1cm) LVDs2.9 (2.5-4.0cm)FS (%) 35.9 % SV63.3 mlLVEF(%)65.6 (>50%) Aortic Valve AoV Peak Jac.133.0cm/sAoV VTI26.7cm AO Peak GR.7.1mmHgLVOT VTI 20.53cm AO Mean GR.4mmHg Mitral Valve MV E Hcqhagka91.9cm/sMV DECEL JNGJ775le MV A Wowythzd50.0cm/sE/A Ratio0.8 TDI Lateral E' P. V7.98cm/sMedial E' P. V6.56cm/s E/Lateral E'8.3E/Medial E'10.0 Pulmonary Valve PV Peak Sffodzzo530.7cm/s Tricuspid Valve TR P. Wxwbhroi415qc/sTR Peak Gr.22mmHg Pulmonary Vein S1 Zznrppcu03.2cm/sS2 Njmvmpea71.31cm/s D2 Eupskpse89.3cm/s LEFT VENTRICLE The left ventricle is normal size. There is mild to moderate concentric left ventricular hypertrophy. The left ventricular systolic function is normal and the ejection fraction is within normal range. E F 55% There is normal LV segmental wall motion. Transmitral Doppler flow pattern is Grade I-abnormal relaxation pattern. RIGHT VENTRICLE The right ventricle is normal size. The right ventricular systolic function is normal. ATRIA The left atrium size is normal. The right atrium size is normal. The interatrial septum is intact wit h no evidence for an atrial septal defect or patent foramen ovale as noted on 2-D or Doppler imaging. AORTIC VALVE The aortic valve is thickened but opens well. Doppler and Color Flow revealed no significant aortic r egurgitation. There is no significant aortic valvular stenosis. There is no aortic valvular vegetatio n. MITRAL VALVE The mitral valve is thickened/calcified but opens well. There is no evidence of mitral valve prolapse . There is no mitral valve stenosis. Doppler and Color Flow revealed no mitral valve regurgitation no reji. TRICUSPID VALVE The tricuspid valve is normal in structure and function. Doppler and Color Flow revealed no tricuspid valve regurgitation noted. There is no tricuspid valve prolapse or vegetation. There is no tricuspid valve stenosis. PULMONIC VALVE The pulmonic valve is not well visualized. Doppler and Color Flow revealed no pulmonic valvular regur gitation. There is no pulmonic valvular stenosis. GREAT VESSELS The aortic root is normal size. The aortic root displays mild sclerocalcific changes of the aortic ro ot. The IVC is normal in size and collapses <50% with inspiration. PERICARDIAL EFFUSION There is no pleural effusion. There is a trace circumferential pericardial effusion. Critical Notification Critical Value: No <Conclusion> The left ventricular systolic function is normal and the ejection fraction is within normal range. EF 55% There is normal LV segmental wall motion. There is mild to moderate concentric left ventricular hypertrophy. Signed by : Chilo Nunn, Electronically Approved : 02/09/2018 13:16:39
[2018-02-09] MEDS ORDERED: MAGNESIUM SULFATE 2GM 50 ML IV ONE (14:00)
--- NOTE | 2018-02-09 14:19 | PDOC2 ---
CONSULT Date of Consult Date of Consult DATE: 02/09/18 TIME: 14:00 Reason for Consult Reason for Consult: CKD 3, S/P renal Transplant Identification/Chief Complaint Chief Complaint Shortness of breath ,diziness Source Source: Chart review, Patient History of Present Illness Reason for Visit: 57 yo AAM s/p renal transplant admitted for complains of SOA and dizziness and mild nausea . Denies any chest pain. No V/D. No F/C, on Abx for tooth abscess due for a root canal soon. He ran out of verapamil and metoprolol for his HTN last . Wednesday and Wednesday . Prior to this episode there was no BERGMAN. No urinary complaints, Good UOP. He Follows with Dr. decker at [facility] - Transplant surgeon and Dr. diallo in our office . He has appt to see me On Mar 01 He states he remembers his last cr was 1.5 , Past Medical History Cardiovascular: HTN Pulmonary: No pertinent hx GI: No pertinent hx Heme/Onc: No pertinent hx Hepatobiliary: No pertinent hx Psych: No pertinent hx Renal/: Chronic renal insuff, Other Endocrine: No pertinent hx Dermatology: No pertinent hx Past Surgical History Past Surgical History: Other (11/2005 renal transplant) Family History Family History: No Significant Social History Quit ALCOHOL: none Drugs: None Lives: with Family Current Problem List Problem List Problems Medical Problems: (1) Dyspnea on exertion Status: Acute (2) New onset atrial fibrillation Status: Acute Current Medications Current Medications Current Medications Sodium Chloride 1,000 ml @ 100 mls/hr Q10H IV Last administered on 02/08/18at 19 :13; Start 02/08/18 at 19:06; Stop 02/09/18 at 05:05; Status DC Apixaban (Eliquis) 5 mg 1X ONCE PO Last administered on 02/08/18at 19:34; Start 02/08/18 at 20:00; Stop 02/08/18 at 20:01; Status DC Mycophenolate Sodium (Myfortic) 360 mg BID PO ; Start 02/09/18 at 09:00; Stop 02/09/18 at 09:00; Status DC Pantoprazole Sodium (Protonix) 40 mg DAILYAC PO Last administered on 02/09/18at 10:38; Start 02/09/18 at 07:30 Tacrolimus (Prograf) 2 mg DAILY PO ; Start 02/09/18 at 09:00; Stop 02/09/18 at 09: 00; Status DC Tacrolimus (Prograf) 3 mg QHS PO ; Start 02/09/18 at 21:00; Stop 02/09/18 at 21:00 ; Status DC Verapamil HCl (Calan Sr) 120 mg QHS PO Last administered on 02/08/18 22:15; Start 02/08/18 at 22:00 Mycophenolate Sodium (Myfortic) 360 mg BID PO Last administered on 02/09/18at 10: 37; Start 02/08/18 at 22:00 Tacrolimus (Prograf) 2 mg DAILY PO Last administered on 02/09/18 10:37; Start 02/09/18 at 09:00 Tacrolimus (Prograf) 3 mg QHS PO Last administered on 02/08/18 22:15; Start 02/08/18 at 22:30 Heparin Sodium (Porcine) (Heparin Sq) 5,000 unit Q8HRS SQ Last administered on 02/09/18 06:19; Start 02/09/18 at 06:00; Stop 02/09/18 at 07:09; Status DC Potassium Chloride (Klor-Con) 40 meq 1X ONCE PO Last administered on 02/09/18 10:39; Start 02/09/18 at 07:15; Stop 02/09/18 at 07:16; Status DC Apixaban (Eliquis) 5 mg BID PO Last administered on 02/09/18 10:38; Start at 09:00; Stop 02/09/18 at 13:14; Status DC Metoprolol Succinate (Toprol Xl) 100 mg DAILY PO Last administered on 02/09/18 10:38; Start 02/09/18 at 09:00 Prednisone (Prednisone) 5 mg DAILY PO Last administered on 02/09/18 10:38; Start 02/09/18 at 09:00 Budesonide (Pulmicort) 0.5 mg RTBID NEB Last administered on 02/09/18 08:51; Start 02/09/18 at 08:00 Albuterol/ Ipratropium (Duoneb) 3 ml RTQID NEB Last administered on 02/09/18at 13 :44; Start 02/09/18 at 08:00 Info (Anti-Coagulation Monitoring By Pharmacy) 1 each PRN DAILY PRN MC SEE COMMENTS Last administered on 02/09/18at 10:31; Start 02/09/18 at 08:00 Aspirin (Ecotrin) 81 mg DAILYWBKFT PO Last administered on 02/09/18at 10:42; Start 02/09/18 at 11:00 Magnesium Sulfate 50 ml @ 25 mls/hr 1X ONCE IV Last administered on 02/09/18at 13:46; Start 02/09/18 at 14:00; Stop 02/09/18 at 15:59 Active Scripts Active Aspirin 325 Mg Tablet 1 Tab PO DAILY Reported Prograf (Tacrolimus) 1 Mg Capsule 3 Cap PO HS Vitamin B-12 (Cyanocobalamin (Vitamin B-12)) 50 Mcg Tablet 50 Mcg PO Omeprazole 20 Mg Capsule.dr 20 Mg PO DAILY Prednisone 5 Mg Tablet 5 Mg PO DAILY Metoprolol Succinate ( Xl ) (Metoprolol Succinate) 100 Mg Tab.er.24h 100 Mg PO DAILY Verapamil Er (Verapamil Hcl) 120 Mg Cap24h.pel 120 Mg PO HS Myfortic (Mycophenolate Sodium) 360 Mg Tablet.dr 360 Mg PO BID Prograf (Tacrolimus) 1 Mg Capsule 2 Cap PO DAILY Allergies Allergies: Coded Allergies: Sulfa (Sulfonamide Antibiotics) (Unverified Allergy, Intermediate, 02/08/18) tetracycline (Unverified Allergy, Intermediate, 02/08/18) ROS Review of System As per HPI Physical Exam Physical Exam General: No acute distress HEENT: OM moist Lungs: Clear to auscultation Heart: 2/6 systolic murmur to LLS border Abdomen: Soft, Renal Tx tenderness Extremities:No edema Skin: No rash Neuro: Normal speech, Sensation intact Psych/Mental Status: Mental status NL, Mood NL no Stuart, No CVA/No SP tenderness Vital Signs Vital Signs Date Time Temp Pulse Resp B/P (MAP) Pulse Ox O2 Delivery O2 Flow Rate FiO2 02/09/18 13:45 98 Room Air 02/09/18 10:45 97.6 82 16 117/75 (89) 97.6 Assessment & Plan S/P renal Tx- with S/P renal transplant in 2005 On Myfortic, Prograf Baseline Creat 1.5 as per Pt, ion review of records from [facility] Cr 1.8 in 2014 Stable renal function , may have some pre-renal component Has appt with me as OP on 03/01 Hypokalemia- Replaced Low Mg- replace New onset AFIB with RVR: in the setting of dehydration and low Mg/K. Converted to SR overnight after verapamil given. Presyncope and dyspnea: suspect from AFIB Hx of lupus nephritis with S/P renal transplant in 2005 . HTN: takes metoprolol and verapamil at home ran out last week. Tooth abscess: due for root canal. On Abx Discussed with pt and RN, Labs Labs Laboratory Tests Test 02/08/18 19:00 02/09/18 01:25 02/09/18 09:05 White Blood Count 9.3 x10^3/uL (4.0-11.0) Red Blood Count 4.48 x10^6/uL (4.30-5.70) Hemoglobin 13.5 g/dL (13.0-17.5) Hematocrit 42.1 % (39.0-53.0) Mean Corpuscular Volume 94 fL (79-100) Mean Corpuscular Hemoglobin 30 pg (25-35) Mean Corpuscular Hemoglobin Concent 32 g/dL (31-37) Red Cell Distribution Width 14.3 % (11.5-14.5) Platelet Count 276 x10^3/uL (140-400) Neutrophils (%) (Auto) 68 % (31-73) Lymphocytes (%) (Auto) 23 % (24-48) Monocytes (%) (Auto) 9 % (0-9) Eosinophils (%) (Auto) 1 % (0-3) Basophils (%) (Auto) 0 % (0-3) Neutrophils # (Auto) 6.3 x10^3uL (1.8-7.7) Lymphocytes # (Auto) 2.1 x10^3/uL (1.0-4.8) Monocytes # (Auto) 0.8 x10^3/uL (0.0-1.1) Eosinophils # (Auto) 0.1 x10^3/uL (0.0-0.7) Basophils # (Auto) 0.0 x10^3/uL (0.0-0.2) Prothrombin Time 12.6 SEC (11.7-14.0) Prothromb Time International Ratio 1.0 (0.8-1.1) D-Dimer (Natalie) 1.99 ug/mlFEU (0.00-0.50) Sodium Level 139 mmol/L (136-145) 141 mmol/L (136-145) Potassium Level 3.5 mmol/L (3.5-5.1) 3.3 mmol/L (3.5-5.1) Chloride Level 105 mmol/L (98-107) 108 mmol/L (98-107) Carbon Dioxide Level 28 mmol/L (21-32) 25 mmol/L (21-32) Anion Gap 6 (6-14) 8 (6-14) Blood Urea Nitrogen 16 mg/dL (8-26) 24 mg/dL (8-26) Creatinine 1.8 mg/dL (0.7-1.3) 1.9 mg/dL (0.7-1.3) Estimated GFR (Cockcroft-Gault) 47.5 44.6 BUN/Creatinine Ratio 9 (6-20) Glucose Level 107 mg/dL (70-99) 99 mg/dL (70-99) Calcium Level 8.8 mg/dL (8.5-10.1) 8.3 mg/dL (8.5-10.1) Magnesium Level 1.6 mg/dL (1.8-2.4) 1.5 mg/dL (1.8-2.4) Total Bilirubin 0.5 mg/dL (0.2-1.0) Aspartate Amino Transf (AST/SGOT) 18 U/L (15-37) Alanine Aminotransferase (ALT/SGPT) 21 U/L (16-63) Alkaline Phosphatase 85 U/L (46-116) Creatine Kinase 108 U/L (39-308) Creatine Kinase MB (Mass) 0.8 ng/mL (0.0-3.6) Creatine Kinase MB Relative Index 0.7 % (0-4) Troponin I Quantitative 0.027 ng/mL (0.000-0.055) 0.026 ng/mL (0.000-0.055) 0.019 ng/mL (0.000-0.055) ZO-Ejo-F-Type Natriuretic Peptide 1255 pg/mL (0-124) Total Protein 8.1 g/dL (6.4-8.2) Albumin 3.6 g/dL (3.4-5.0) Albumin/Globulin Ratio 0.8 (1.0-1.7) Thyroid Stimulating Hormone (TSH) 1.548 uIU/mL (0.358-3.74) Free Thyroxine 0.88 ng/dL (0.76-1.46) Triglycerides Level 115 mg/dL (0-150) Cholesterol Level 178 mg/dL (0-200) LDL Cholesterol, Calculated 106 mg/dL (0-100) VLDL Cholesterol, Calculated 23 mg/dL (0-40) Non-HDL Cholesterol Calculated 129 mg/dL (0-129) HDL Cholesterol 49 mg/dL (40-60) Cholesterol/HDL Ratio 3.6 Laboratory Tests Test 02/08/18 19:00 02/09/18 01:25 02/09/18 09:05 White Blood Count 9.3 x10^3/uL (4.0-11.0) Red Blood Count 4.48 x10^6/uL (4.30-5.70) Hemoglobin 13.5 g/dL (13.0-17.5) Hematocrit 42.1 % (39.0-53.0) Mean Corpuscular Volume 94 fL (79-100) Mean Corpuscular Hemoglobin 30 pg (25-35) Mean Corpuscular Hemoglobin Concent 32 g/dL (31-37) Red Cell Distribution Width 14.3 % (11.5-14.5) Platelet Count 276 x10^3/uL (140-400) Neutrophils (%) (Auto) 68 % (31-73) Lymphocytes (%) (Auto) 23 % (24-48) Monocytes (%) (Auto) 9 % (0-9) Eosinophils (%) (Auto) 1 % (0-3) Basophils (%) (Auto) 0 % (0-3) Neutrophils # (Auto) 6.3 x10^3uL (1.8-7.7) Lymphocytes # (Auto) 2.1 x10^3/uL (1.0-4.8) Monocytes # (Auto) 0.8 x10^3/uL (0.0-1.1) Eosinophils # (Auto) 0.1 x10^3/uL (0.0-0.7) Basophils # (Auto) 0.0 x10^3/uL (0.0-0.2) Prothrombin Time 12.6 SEC (11.7-14.0) Prothromb Time International Ratio 1.0 (0.8-1.1) D-Dimer (Natalie) 1.99 ug/mlFEU (0.00-0.50) Sodium Level 139 mmol/L (136-145) 141 mmol/L (136-145) Potassium Level 3.5 mmol/L (3.5-5.1) 3.3 mmol/L (3.5-5.1) Chloride Level 105 mmol/L (98-107) 108 mmol/L (98-107) Carbon Dioxide Level 28 mmol/L (21-32) 25 mmol/L (21-32) Anion Gap 6 (6-14) 8 (6-14) Blood Urea Nitrogen 16 mg/dL (8-26) 24 mg/dL (8-26) Creatinine 1.8 mg/dL (0.7-1.3) 1.9 mg/dL (0.7-1.3) Estimated GFR (Cockcroft-Gault) 47.5 44.6 BUN/Creatinine Ratio 9 (6-20) Glucose Level 107 mg/dL (70-99) 99 mg/dL (70-99) Calcium Level 8.8 mg/dL (8.5-10.1) 8.3 mg/dL (8.5-10.1) Magnesium Level 1.6 mg/dL (1.8-2.4) 1.5 mg/dL (1.8-2.4) Total Bilirubin 0.5 mg/dL (0.2-1.0) Aspartate Amino Transf (AST/SGOT) 18 U/L (15-37) Alanine Aminotransferase (ALT/SGPT) 21 U/L (16-63) Alkaline Phosphatase 85 U/L (46-116) Creatine Kinase 108 U/L (39-308) Creatine Kinase MB (Mass) 0.8 ng/mL (0.0-3.6) Creatine Kinase MB Relative Index 0.7 % (0-4) Troponin I Quantitative 0.027 ng/mL (0.000-0.055) 0.026 ng/mL (0.000-0.055) 0.019 ng/mL (0.000-0.055) CQ-Wef-T-Type Natriuretic Peptide 1255 pg/mL (0-124) Total Protein 8.1 g/dL (6.4-8.2) Albumin 3.6 g/dL (3.4-5.0) Albumin/Globulin Ratio 0.8 (1.0-1.7) Thyroid Stimulating Hormone (TSH) 1.548 uIU/mL (0.358-3.74) Free Thyroxine 0.88 ng/dL (0.76-1.46) Triglycerides Level 115 mg/dL (0-150) Cholesterol Level 178 mg/dL (0-200) LDL Cholesterol, Calculated 106 mg/dL (0-100) VLDL Cholesterol, Calculated 23 mg/dL (0-40) Non-HDL Cholesterol Calculated 129 mg/dL (0-129) HDL Cholesterol 49 mg/dL (40-60) Cholesterol/HDL Ratio 3.6 Review All relevant outside records, renal labs, imaging studies, telemetry/EKG's were reviewed. BATSHEVA HARRINGTON MD Feb 09, 2018 14:18
[2018-02-09 14:47] VITALS: BP 119/73
== END 2018-02-09 15:45 | disposition home or self-care (01) | DRG 291 ==
LOC: ER 17:50 → 2 SOUTH 20:00
PROVIDERS: ADMIT Family Medicine; ATTEND Family Medicine
DX: I13.0 Hypertensive heart and chronic kidney disease with heart failure and stage 1 through stage 4 chronic kidney disease, or unspecified chronic kidney disease (principal); I50.31 Acute diastolic (congestive) heart failure; Z94.0 Kidney transplant status; I48.91 Unspecified atrial fibrillation; N18.3 Chronic kidney disease, stage 3 (moderate); E86.0 Dehydration; K04.7 Periapical abscess without sinus; E87.6 Hypokalemia; Z68.30 Body mass index [BMI] 30.0-30.9, adult; Z82.49 Family history of ischemic heart disease and other diseases of the circulatory system; Z87.891 Personal history of nicotine dependence; F32.9 Major depressive disorder, single episode, unspecified
CPT/HCPCS: 36415; 71045; 78582; 80048; 80053; 80061; 82553; 83735; 83880; 84439; 84443; 84484; 85025; 85379; 85610; 93005; 93306; 94640; 94760; 96360; 96361; 96374; A9540; A9558; J3475; J7030; J7507; J7512; J7620; J7626; 99285-25

== ENCOUNTER → 2021-04-30 | Outpatient (CLI) | payer OTHER ==
[~2021-04-30] MED LIST changes: +ASPI325T8 PO; +CYAN50TA PO; +METO-247 PO; +MYCO360T PO; +OMEP20CA16 PO; +PRED5TAB PO; +REGADENOSON 0.4 MG/5 ML DISP.SYRIN. IV ONE; -TACR1CAP4 PO; +TACR1CAP5 PO; +VERA120C2 PO
--- NOTE | 2021-04-30 15:50 | RAD ---
MR#: [id number] Date of Study: 04/30/2021 Ordering Physician: ARTI DENT Referring Physician: LUIS CHAUDHARI Tech: RT Jc Monterroso) (N) APPROVED REPORT Test Type: Pharmacological Stress Nurse/Tech: Catie Vasquez RN Test Indications: Dyspnea on exertion Cardiac History: Ablation 2019, MD Medications: See Electronic Medical Record Medical History: See Electronic Medical Record Resting ECG: SR Resting Heart Rate: 71 bpm Resting Blood Pressure: 160/100mmHg Pretest Chest Pain: No chest pain Nurse/Tech Notes S1,S2 and lungs diminished in the bases. Consent: The procedure was explained to the patient in lay terms. Informed consent was witnessed. Ladarius eout was entered into [employer]. History and Stress Test performed by RT Kriss (R) (N) Pharm. Details Pharmacologic stress testing was performed using 0.4mg per 5ml of regadenoson given intravenously ove r 7-10 seconds. Stress Symptoms Dyspnea POST EXERCISE Reason for Termination: Infusion complete Target HR: No Max HR: 94 bpm 69% of Maximum Predicted HR: 136 bpm Max Blood Pressure: 156/105mmHg Blood Pressure response to exercise: Normal blood pressure response during stress. Heart Rate response to exercise: WNL Chest Pain: No. Arrhythmia: No. ST Change: No. INTERPRETATION Stress EKG Conclusion: Baseline EKG showed sinus rhythm. No ischemic changes at peak stress. No arr hythmias. Imaging Protocol IMAGE PROTOCOL: Rest Tc-99m/stress Tc-99m 1 day Rest: Stress: Viability: Radiopharm.Tc99m RjgzobczrRt62e Sestamibi Dego98eIl 31.5mCi Duration 15min. 15min. Img Date 04/30/2021 04/30/2021 Inj-Img [id number]. 60min. Rest Admin Site:IV - Left AntecubitalAdministrator:RT Jc Monterroso)(N) Stress Admin Site: IV - Left AntecubitalAdministrator: RT Jc Huang)(N) STRESS DATA End Diast. Vol.88.0mlAv. Heart Rate91.0bpm End Syst. Vol.23.0mlCO Index BSA0.0L/min Myocardial Idid040.0gEject. Bkewajhd79.0% Stress Rates Pk. Fill Rate4.00EDV/secLVtime Pk. Fill 190.01msec Pk. Empty Rate5.56ESV/secLVtime Pk. Rupmm755.23msec 1/3 Pk. Fill0.82EDV/sec Stress Scores Regional WT2.00Summed WT22.00 Regional WM0.00Summed WM3.00 Study quality was good. Left Ventricular size was Normal at Rest and Stress. Lung uptake was . Left Ventricular ejection fraction is 74%. The rest and stress images show normal perfusion, normal contraction and thickening. LV Perf. Quant 17 Seg. SSS2.00 17 Seg. SRS3.00 17 Seg. SDS0.00 Stress Defect Extent (% LAD)0.00Rest Defect Extent (% LAD)0.00Rev. Defect Extent (% LAD)0.00 Stress Defect Extent (% LCX) 10.00Rest Defect Extent (% LCX)23.80Rev. Defect Extent (% LCX)0.00 Stress Defect Extent (% RCA)0.00Rest Defect Extent (% RCA)0.00Rev. Defect Extent (% RCA)0.00 Stress Defect Extent (% SINCERE)1.70Rest Defect Extent (% SINCERE)5.00Rev. Defect Extent (% SINCERE)0.00 Conclusion 1. Regadenoson cardioisotope stress test did not show any evidence of ischemia or infarct. 2. Normal left ventricular systolic function with ejection fraction calculated at 74%. 3. Low risk for cardiac events. Signed by : Arti Dent, Electronically Approved : 04/30/2021 15:50:01
--- NOTE | 2021-04-30 15:57 | CARD ---
MR#: [id number] Date of Study: 04/30/2021 Ordering Physician: ARTI LOUIS, Referring Physician: ARTI LOUIS, Tech: Diana Diaz [facility] APPROVED REPORT EXAM: Two-dimensional and M-mode echocardiogram with Doppler and color Doppler. Other Information Quality : AverageHR: 81bpm INDICATION Dyspnea RISK FACTORS Hyperlipidemia 2D DIMENSIONS RVDd4.1 (2.9-3.5cm)Left Atrium(2D)3.7 (1.6-4.0cm) IVSd1.3 (0.7-1.1cm)Aortic Root(2D)3.5 (2.0-3.7cm) LVDd4.7 (3.9-5.9cm)LVOT Diameter2.0 (1.8-2.4cm) PWd1.2 (0.7-1.1cm)LVDs3.0 (2.5-4.0cm) FS (%) 34.7 %SV64.1 ml LVEF(%)63.9 (>50%) Aortic Valve AoV Peak Jac.93.6cm/sAoV VTI18.0cm AO Peak GR.3.5mmHgLVOT Peak Jac.88.0cm/s LVOT VTI 18.93cmAO Mean GR.2mmHg ROSIE (VMAX)2.23sv5UZW (VTI)3.40cm2 Mitral Valve MV E Lnbxffxw23.3cm/sMV DECEL [id number] MV A Mjdzbyhi45.6cm/sMV E Mean Gr.1mmHg MV JWG93hmW/A Ratio0.9 MVA (PHT)3.70cm2 TDI E/Lateral E'12.5E/Medial E'14.6 Pulmonary Valve PV Peak Hxoofcrp66.3cm/sPV Peak Grad.3mmHg Tricuspid Valve TR P. Ksuwntmi526bd/sRAP PVETRVOI4chNp TR Peak Gr.84qgAxWKBE34hbHz Pulmonary Vein S1 Kymmcxua84.5cm/sD2 Qctuwyjm91.8cm/s PVa [id number] LEFT VENTRICLE The left ventricle is normal size. There is mild to moderate concentric left ventricular hypertrophy. The left ventricular systolic function is normal. The Ejection Fraction is 55-60%. There is normal L V segmental wall motion. Transmitral Doppler flow pattern is Grade I-abnormal relaxation pattern. RIGHT VENTRICLE The right ventricle is normal size. There is normal right ventricular wall thickness. The right ventr icular systolic function is normal. ATRIA The left atrium is mildly dilated. The right atrium size is normal. The interatrial septum is intact with no evidence for an atrial septal defect or patent foramen ovale as noted on 2-D or Doppler imagi ng. AORTIC VALVE The aortic valve is calcified but opens well. Doppler and Color Flow revealed trace aortic regurgitat ion. There is no significant aortic valvular stenosis. Calculated aortic valve area is 3.67 cm2 with maximum pressure gradient of 4 mmHg and mean pressure gradient of 2 mmHg. MITRAL VALVE The mitral valve is normal in structure and function. There is no evidence of mitral valve prolapse. There is no mitral valve stenosis. Doppler and Color-flow revealed trace mitral regurgitation. TRICUSPID VALVE The tricuspid valve is normal in structure and function. Doppler and Color Flow revealed trace tricus pid regurgitation with an estimated PAP of 37 mmHg. There is no tricuspid valve stenosis. PULMONIC VALVE The pulmonic valve is not well visualized. Doppler and Color Flow revealed trace pulmonic valvular re gurgitation. GREAT VESSELS The aortic root is normal in size. The ascending aorta is Mildly dilated measuring 3.8 cm. The IVC is dilated and collapses >50% with inspiration. PERICARDIAL EFFUSION There is no evidence of significant pericardial effusion. Critical Notification Critical Value: No <Conclusion> The left ventricular systolic function is normal. The Ejection Fraction is 55-60%. There is normal LV segmental wall motion. Transmitral Doppler flow pattern is Grade I-abnormal relaxation pattern. Trace mitral regurgitation. Trace tricuspid regurgitation with an estimated PAP of 37 mmHg. There is no evidence of significant pericardial effusion. Signed by : Arti Louis, Electronically Approved : 04/30/2021 15:56:49
== END ==
LOC: ECHO 07:40
PROVIDERS: ATTEND Internal Medicine Cardiovascular Disease
DX: I35.1 Nonrheumatic aortic (valve) insufficiency (principal); I77.819 Aortic ectasia, unspecified site; I51.7 Cardiomegaly; R06.09 Other forms of dyspnea
CPT/HCPCS: 78452; 93017; 93306; A9500; J2785